=== PATIENT | female | born 1975 | race Hispanic/Latino ===

== ENCOUNTER 2021-04-14 09:13 | Emergency (ER) | payer BC ==
[2021-04-14] MEDS ORDERED: SODIUM CHLORIDE 0.9% 1000 ML 1,000 ML IV ONE ×2 (09:24→12:15)
--- NOTE | 2021-04-14 09:53 | XRay Report ---
CHEST 2 VIEWS INDICATION: cough, fever. COMPARISON: none FINDINGS: Support devices: None. Heart: Within normal limits. Lungs/pleura: No acute air space or interstitial disease. No pneumothorax. Additional findings: None. IMPRESSION: No acute findings. Signer Name: Isreal Nelson Jr, MD Signed: 04/14/2021 9:45 AM Workstation Name: [id number]
--- NOTE | 2021-04-14 10:14 | Emergency Department Report ---
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 Patient states this started yesterday evening. Patient reports she had taken at 1000 mg of acetaminophen and 800 mg ibuprofen prior to arrival. MD Complaint: fever, cough, sore throat -: Last night Severity: moderate Consistency: constant Associated Symptoms: fever, chills, myalgias, headache, rhinorrhea, nasal congestion, sore throat, cough Treatments Prior to Arrival: Acetaminophen, Ibuprofen - Related Data Previous Rx's Medication Instructions Recorded Last Taken Type Azithromycin [Zithromax Z-JOSE] 250 mg PO DAILY #6 tab 04/14/21 Unknown Rx Promethazine Dm (Nf) [Phenergan DM 5 ml PO Q6H PRN #110 ml 04/14/21 Unknown Rx 6.25-15 mg/5 ml] predniSONE [Deltasone] 20 mg PO QDAY 5 Days #5 tab 04/14/21 Unknown Rx Allergies Allergy/AdvReac Type Severity Reaction Status Date / Time morphine Allergy Intermediate Hives Verified 04/14/21 09:22 ondansetron [From Zofran] Allergy Intermediate Hives Verified 04/14/21 09:22 ED Review of Systems ROS: Stated complaint: FLU LIKE SX Other details as noted in HPI Comment: All other systems reviewed and negative ED Past Medical Hx - Medications Home Medications: Home Medications Medication Instructions Recorded Confirmed Last Taken Type Azithromycin [Zithromax Z-JOSE] 250 mg PO DAILY #6 tab 04/14/21 Unknown Rx Promethazine Dm (Nf) [Phenergan DM 5 ml PO Q6H PRN #110 ml 04/14/21 Unknown Rx 6.25-15 mg/5 ml] predniSONE [Deltasone] 20 mg PO QDAY 5 Days #5 tab 04/14/21 Unknown Rx ED Physical Exam - General Limitations: No Limitations General appearance: alert, in no apparent distress - Head Head exam: Present: atraumatic, normocephalic - Eye Eye exam: Present: normal appearance - ENT ENT exam: Present: mucous membranes moist, normal external ear exam - Neck Neck exam: Present: normal inspection, full ROM - Respiratory Respiratory exam: Present: normal lung sounds bilaterally, other (Dry cough). Absent: respiratory distress, chest wall tenderness, accessory muscle use - Cardiovascular Cardiovascular Exam: Present: tachycardia - GI/Abdominal GI/Abdominal exam: Present: soft. Absent: distended, tenderness - Extremities Exam Extremities exam: Present: normal inspection, full ROM. Absent: tenderness - Back Exam Back exam: Present: normal inspection - Neurological Exam Neurological exam: Present: alert, oriented X3, normal gait - Psychiatric Psychiatric exam: Present: normal affect, normal mood - Skin Skin exam: Present: warm, dry, intact, normal color. Absent: rash ED Course Vital Signs 04/14/21 04/14/21 04/14/21 09:18 10:17 11:02 Temperature 100.8 F H 101.1 F H Pulse Rate 112 H 100 H Respiratory 18 12 16 Rate Blood Pressure 123/81 117/72 [Right] O2 Sat by Pulse 99 100 Oximetry 04/14/21 04/14/21 04/14/21 11:06 12:01 16:00 Temperature 100.3 F H 98.3 F 99.0 F Pulse Rate 92 H Respiratory 14 Rate Blood Pressure 108/63 [Right] O2 Sat by Pulse 97 Oximetry ED Medical Decision Making - Lab Data Result diagrams: 04/14/21 10:22 04/14/21 12:22 - Radiology Data Radiology results: report reviewed Study Comments [facility] [address] [place] [address] XRay Report Signed Patient: AHSAN HUBBARD MR#: [id number] : 1975 Acct:[id number] Age/Sex: 45 / F ADM Date: 04/14/21 Loc: ED Attending Dr: Ordering Physician: EFREM CARTER Date of Service: 04/14/21 Procedure(s): XR chest routine 2V Accession Number(s): [id number] cc: EFREM CARTER Fluoro Time In Minutes: CHEST 2 VIEWS INDICATION: cough, fever. COMPARISON: none FINDINGS: Support devices: None. Heart: Within normal limits. Lungs/pleura: No acute air space or interstitial disease. No pneumothorax. Additional findings: None. IMPRESSION: No acute findings. 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 Patient states this started yesterday evening. Patient reports she had taken at 1000 mg of acetaminophen and 800 mg ibuprofen prior to arrival. CBC CMP rapid flu, INT, normal saline chest x-ray IV Covid, Labs are stable. Negative Covid test negative flu test chest x-ray within normal limits. 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 Discussed with patient Tylenol ibuprofen to continue. Discussed with patient to increase her water intake advance her diet as tolerated. Encourage patient to rest. Follow-up with a primary care provider. Critical care attestation.: If time is entered above; I have spent that time in minutes in the direct care of this critically ill patient, excluding procedure time. ED Disposition Clinical Impression: Upper respiratory infection, acute Disposition: 01 HOME / SELF CARE / HOMELESS Is pt being admited?: No Does the pt Need Aspirin: No Condition: Stable Instructions: Upper Respiratory Infection, Adult, [id number] Additional Instructions: Complete antibiotics as prescribed. Be sure to increase your water intake. Tylenol or ibuprofen as needed for fever and pain. Prescriptions: predniSONE [Deltasone] 20 mg PO QDAY 5 Days #5 tab Promethazine Dm (Nf) [Phenergan DM 6.25-15 mg/5 ml] 5 ml PO Q6H PRN #110 ml PRN Reason: Cough Azithromycin [Zithromax Z-JOSE] 250 mg PO DAILY #6 tab Referrals: PRIMARY CAREMD [Primary Care Provider] - 3-5 Days Forms: Work/School Release Form(ED) Time of Disposition: 15:48
[2021-04-14 10:36] LABS: Basophils % (Auto) 0.4 % (0.0-1.8); Eosinophils # (Auto) 0.1 K/mm3 (0.0-0.4); Eosinophils % (Auto) 2.2 % (0.0-4.3); Hematocrit 42.5 % (30.3-42.9); Hemoglobin 14.2 gm/dl (10.1-14.3); Lymphocytes # (Auto) 0.3 K/mm3 (1.2-5.4); Lymphocytes % (Auto) 7.4 % (13.4-35.0); Mean Corpuscular HGB Conc 34 % (30-34); Mean Corpuscular Volume 92 fl (79-97); Monocytes # (Auto) 0.3 K/mm3 (0.0-0.8); Monocytes % (Auto) 7.4 % (0.0-7.3); Platelet Count 169 K/mm3 (140-440); Red Blood Count 4.63 M/mm3 (3.65-5.03); Red Cell Distribution Width 12.5 % (13.2-15.2)
[2021-04-14] MEDS ORDERED: IBUPROFEN 600 MG TAB PO ONE (10:48)
[2021-04-14] MEDS ORDERED: ACETAMINOPHEN 325 MG TAB PO ONE (10:48)
[2021-04-14 10:58] LABS: Alanine Aminotransferase 25 units/L (7-56); Albumin 4.5 g/dL (3.9-5); BUN/Creatinine Ratio 20; Blood Urea Nitrogen 10 mg/dL (7-17); Calcium 8.8 mg/dL (8.4-10.2); Hemolysis Index 457
[2021-04-14 16:01] VITALS: BP 108/63
== END 2021-04-14 16:40 | disposition home or self-care (01) ==
LOC: ED 09:13
DX: J06.9 Acute upper respiratory infection, unspecified (principal); Z88.5 Allergy status to narcotic agent; Z79.899 Other long term (current) drug therapy
CPT/HCPCS: 36415; 71046; 80053; 84132; 85025; 87400; 96360; 96361; 99284; J7030; Q0162